=== PATIENT | female | born 2000 | race Caucasian/White ===

== ENCOUNTER 2021-04-29 15:53 | Emergency (ER) | payer OTHER ==
[2021-04-29 17:21] LABS: HEMOGLOBIN 13.4 gm/dl (12.3-15.3); RED BLOOD COUNT 4.55 M/UL (4.00-5.10)
[2021-04-29 17:35] LABS: BUN/CREATININE RATIO 20 (0-10)
== END 2021-04-29 18:29 | disposition left against medical advice (07) ==
LOC: ER1 15:53 → CDU 18:18
PROVIDERS: Nurse Practitioner
DX: M54.50 Low back pain, unspecified (principal)
CPT/HCPCS: 80053; 85025; 85652; 86140; 99284; G0378